=== PATIENT | female | born 1990 | race Two or more races ===

== ENCOUNTER 2024-11-03 14:29 | Outpatient (CLI) | payer OTHER | END 2024-11-03 14:30 | disposition home or self-care (01) | LOC: PRENATAL 14:29 | PROVIDERS: ATTEND Obstetrics & Gynecology Maternal & Fetal Medicine | DX: O26.849 Uterine size-date discrepancy, unspecified trimester (principal); Z3A.16 16 weeks gestation of pregnancy ==